=== PATIENT | male | born 1985 | race Caucasian/White ===

== ENCOUNTER 2017-06-07 22:33 | Observation (INO) ==
[2017-06-07] MEDS ORDERED: 0.9 % Sodium Chloride 1,000 ML IVC ONE (23:41)
[2017-06-07] MEDS ORDERED: methylPREDNISolone 125 MG/2 ML VIAL IVP ONE (23:43)
[2017-06-07] MEDS ORDERED: Ipratropium/Albuterol Neb 3 ML IH ONE (23:43)
--- NOTE | 2017-06-07 23:44 | Emergency Department Note ---
Overdose - Medical Records Medical records reviewed: Yes I reviewed the patient's medical records. - Lab Data Lab results reviewed: Yes I reviewed the patient's lab results. Result diagrams: 06/07/17 23:53 06/07/17 23:53 Lab Results 06/07/17 06/07/17 Range/Units 23:53 23:53 WBC 7.7 (4.3-11.1) K/mcL RBC 5.39 (4.19-5.50) M/mcL Hgb 16.1 (12.9-16.9) g/dL Hct 45.4 (37.5-50.1) % MCV 84.2 (83.0-100.0) fL MCH 29.9 (28.0-33.3) pg MCHC 35.5 (31.6-35.5) g/dL RDW 12.8 (11.5-14.5) % Plt Count 329 (140-400) K/mcL MPV 10.0 (9.4-12.4) fL Immature Gran % 0.5 (0-4) % Seg Neutrophils % 62.5 % Lymphocytes % 25.1 % Monocytes % 4.7 % Eosinophils % 6.4 % Basophils % 0.8 % Neutrophils # 4.8 (1.6-8.9) K/mcL Lymphocytes # 1.9 (0.6-4.6) K/mcL Monocytes # 0.4 (0.0-1.3) K/mcL Eosinophils # 0.5 (0.0-0.6) K/mcL Basophils # 0.1 (0.0-0.2) K/mcL Sodium 137 (136-145) mEq/L Potassium 3.6 (3.5-5.1) mEq/L Chloride 103 (98-107) mEq/L Carbon Dioxide 26 (23-29) mEq/L BUN 10 (6-20) mg/dL Creatinine 1.00 (0.70-1.30) mg/dL Est GFR ( Amer) > 60 (> 60) Est GFR (Non-Af Amer) > 60 (> 60) BUN/Creatinine Ratio 10 (6-26) Glucose 158 H (70-105) mg/dL Calculated Osmolality 286 (280-300) Calcium 9.4 (8.6-10.3) mg/dL Total Bilirubin 0.7 (0.3-1.0) mg/dL Direct Bilirubin 0.2 (0.0-0.2) mg/dL Indirect Bilirubin 0.5 (0.0-1.2) mg/dL AST 25 (13-39) Units/L ALT 23 (7-52) Units/L Alkaline Phosphatase 57 (34-104) Units/L Serum Total Protein 7.2 (6.4-8.9) g/dL Albumin 4.6 (3.5-5.7) g/dL Globulin 2.6 (2.4-3.5) g/dL Albumin/Globulin Ratio 1.8 (1.1-2.2) - Radiology Data Radiology results reviewed: Yes I reviewed the patient's radiology results. Chest X-Ray 06/07/17 22:52 IMPRESSION: No acute process. D/ / Alex Ward MD / Alex Ward MD Interpreting Provider: Alex Ward MD - EKG Data EKG attestation: Yes I reviewed and interpreted this EKG. EKG results narrative: EKG shows a normal sinus rhythm with ventricular rate of 83. No acute ST segment elevation or depression. Overdose HPI - General Chief Complaint: ED Overdose Stated Complaint: OD Time Seen by Provider: 06/07/17 23:15 Source: patient, EMS Limitations: no limitations Nursing Notes Reviewed: Yes Vital Signs Reviewed: Yes - History of Present Illness HPI Narrative: 32-year-old male presents to the emergency department after an accidental overdose of heroin. Patient states that he snorted it and he became unresponsive. He received intranasal Narcan by police but did not arouse. EMS gave an additional 2 mg of Narcan intranasal and he became alert. In the emergency department the patient is drowsy but responds and awakens with stimulation. Vital signs normal. He states he is not sure what he did but he thinks it was heroin and he snorted it. He denies injecting. He denies any suicidal or homicidal ideations. He did vomit at the scene and complains of some shortness of breath. Family concerned because he sounds rattly in his chest. Pt Subjective Complaint: accidental overdose Onset (ago): Just [employer]ACH[employer] Intent: accidental Treatments Prior to Arrival: narcan - Related Data Previous Rx's Medication Instructions Recorded Amoxicillin/Clavulanate [Augmentin] 875 mg PO BIDWM #20 tablet 03/22/15 Allergies Allergy/AdvReac Type Severity Reaction Status Date / Time No Known Allergies Allergy Verified 03/22/15 20:20 All systems ED: reviewed and negative except as stated. Respiratory: Reports: dyspnea, wheezes Gastrointestinal: Reports: nausea, vomiting Past Medical History - Past Medical History Medical history: Reports: no medical history, other Psychiatric history: Reports: no psych history - Social History Smoking Status: Current some day smoker Smokeless Tobacco Status: Yes Alcohol use: Reports: rarely Drug use: Reports: opiates Physical Exam - General Limitations: no limitations General appearance: alert, in no apparent distress - Head Head exam: atraumatic, normocephalic, normal inspection - Eye Eye exam: Present: normal appearance, PERRL, EOMI. Absent: scleral icterus - ENT ENT exam: normal exam, normal oropharynx, mucous membranes moist, TM's normal bilaterally - Neck Neck exam: Present: normal inspection, full ROM, trachea midline. Absent: tenderness, meningismus, lymphadenopathy - Chest Chest inspection: Present: normal inspection, symmetric chest wall rise. Absent : tenderness - Respiratory Respiratory exam: Present: wheezes (Patient does have diffuse scattered bilateral expiratory wheezes.). Absent: respiratory distress, stridor, accessory muscle use - Cardiovascular Cardiovascular exam: Present: regular rate, normal rhythm, normal heart sounds - Abdominal Exam Abdominal exam: Present: soft, Non-Tender, normal bowel sounds. Absent: distention, guarding, rebound, rigidity - Extremities Exam Extremities exam: Present: normal inspection, full ROM. Absent: tenderness, pedal edema - Back Exam Back exam: Present: normal inspection. Absent: CVA tenderness (R), CVA tenderness (L) - Neurological Exam Neurological exam: Present: alert. Absent: motor sensory deficit - Psychiatric Psychiatric exam: Present: normal affect, normal mood - Skin Skin exam: Present: warm, dry, intact, normal color. Absent: cyanosis, diaphoresis Course Course Narrative: Patient presented to the emergency department after an accidental overdose of heroin requiring intranasal Narcan. Patient monitored for several hours. Vital signs stable. Patient did vomit and had some wheezing and there was concern about possible aspiration. Workup for this obtained and is negative. Symptoms improved with a DuoNeb and Solu-Medrol. Patient however continued to have wheezing and Dropping his oxygen saturation down into the 80s despite having oxygen on by nasal cannula. - Consultations Consultation #1: The hospitalist, Dr. Pandey, was consulted and accepted admission of the patient. Vital Signs Temperature 98.9 F 06/07/17 22:38 Pulse Rate 89 06/07/17 22:38 Respiratory Rate 18 06/07/17 22:38 Blood Pressure 117/81 06/07/17 22:38 O2 Sat by Pulse Oximetry 93 06/07/17 22:38 Temperature 98.9 F 06/07/17 22:38 Pulse Rate 83 06/08/17 03:30 Respiratory Rate 16 06/08/17 03:20 Blood Pressure 114/71 06/08/17 03:30 O2 Sat by Pulse Oximetry 98 06/08/17 03:30 Oxygen Delivery Oxygen Delivery Nasal Cannula Disposition Clinical Impression: Wheezing, Hypoxia Drug overdose Qualifiers: Encounter type: initial encounter Injury intent: accidental or unintentional Qualified Code(s): T50.901A - Poisoning by unspecified drugs, medicaments and biological substances, accidental (unintentional), initial encounter Disposition: Admitted As Inpatient Condition: Fair Referrals: NONE,PCP [Primary Care Provider] - Forms: ED Satisfaction Letter
[2017-06-07 23:57] LABS: Basophils # 0.1 K/mcL (0.0-0.2); Basophils % 0.8 %; Eosinophils # 0.5 K/mcL (0.0-0.6); Eosinophils % 6.4 %; Hematocrit 45.4 % (37.5-50.1); Hemoglobin 16.1 g/dL (12.9-16.9); Immature Granulocytes % 0.5 % (0-4); Lymphocytes # 1.9 K/mcL (0.6-4.6); Lymphocytes % 25.1 %; Mean Corpuscular HGB Conc 35.5 g/dL (31.6-35.5); Mean Corpuscular Hemoglobin 29.9 pg (28.0-33.3); Mean Corpuscular Volume 84.2 fL (83.0-100.0); Monocytes # 0.4 K/mcL (0.0-1.3); Monocytes % 4.7 %; Neutrophils # 4.8 K/mcL (1.6-8.9); Platelet Count 329 K/mcL (140-400); Red Blood Count 5.39 M/mcL (4.19-5.50); Red Cell Distribution Width 12.8 % (11.5-14.5); Segmented Neutrophils % 62.5 %
[2017-06-08 00:08] LABS: Alanine Aminotransferase 23 Units/L (7-52); Albumin 4.6 g/dL (3.5-5.7); Albumin/Globulin Ratio 1.8 (1.1-2.2); Alkaline Phosphatase 57 Units/L (34-104); Aspartate Amino Transferase 25 Units/L (13-39); BUN/Creatinine Ratio 10 (6-26); Bilirubin,Direct 0.2 mg/dL (0.0-0.2); Bilirubin,Indirect 0.5 mg/dL (0.0-1.2); Bilirubin,Total 0.7 mg/dL (0.3-1.0); Blood Urea Nitrogen 10 mg/dL (6-20); Calcium 9.4 mg/dL (8.6-10.3); Carbon Dioxide 26 mEq/L (23-29); Chloride 103 mEq/L (98-107); Globulin 2.6 g/dL (2.4-3.5); Glucose 158 mg/dL (70-105); Osmolality,Calculated 286 (280-300); Potassium 3.6 mEq/L (3.5-5.1); Sodium 137 mEq/L (136-145); Total Protein 7.2 g/dL (6.4-8.9); eGFR For African Americans > 60 (> 60); eGFR For Non-African Americans > 60 (> 60)
[2017-06-08] MEDS ORDERED: Ipratropium/Albuterol Neb 3 ML IH ONE (03:06)
[2017-06-08] MEDS ORDERED: Acetaminophen 325 MG TABLET PO PRN (08:24)
[2017-06-08] MEDS ORDERED: Naloxone 0.4 MG/ML INJ IVP PRN (08:24)
[2017-06-08] MEDS ORDERED: Albuterol 2.5 MG/3 ML NEBULIZER IH PRN (08:27)
[2017-06-08] MEDS ORDERED: 0.9 % Sodium Chloride w KCl 20 MEQ/1,000 ML MLS IVC SCH (08:30)
[2017-06-08] MEDS: *HR* Heparin 5,000 UNIT/ML VIAL SQ SCH ×2 (08:54→17:48)
[2017-06-08] MEDS ORDERED: Piperacillin/Tazobactam 3.375 GM in 0.9 % Sodium Chloride Mini Bag 100 ML IVPB SCH ×2 (09:00→12:00)
--- NOTE | 2017-06-08 09:18 | Internal Med History&Physical ---
Date of Encounter: 06/08/17 Time of Encounter: 07:45 Assessment and Plan (1) Drug overdose Current visit: Yes Status: Acute 1. Will monitor on telemetry and close observation. 2. Patient awake and protecting airway now. 3. Do not plan to resume Suboxone until tomorrow due to overdose from last night. If patient remains somnolent through today and into tomorrow, recommend further withholding of Suboxone. 4. Will order urine toxicology screen. Qualifiers: Encounter type: initial encounter Injury intent: accidental or unintentional Qualified Code(s): T50.901A - Poisoning by unspecified drugs, medicaments and biological substances, accidental (unintentional), initial encounter (2) Aspiration into airway Current visit: Yes Status: Acute 1. CXR negative for infiltrates. 2. On exam, he has diffuse rhonchi and wheezing with oxygen requirement. 3. I will treat with Zosyn to cover aspiration alvarado. 4. Will also place on scheduled aerosols and steroids. 5. Wean oxygen as tolerated. Qualifiers: Encounter type: initial encounter Qualified Code(s): T17.908A - Unspecified foreign body in respiratory tract, part unspecified causing other injury, initial encounter (3) DVT prophylaxis Current visit: Yes Status: Acute 1. Heparin SQ. Internal Medicine - H&P: HPI Chief complaint: overdose Admitted From: Emergency Dept Plans for Post Hospital Care: Home History of present illness: Mr. Coyle is a 32 year old male who presented to the ER last night/early this morning with an accidental overdose of heroin. He was found by his niece and sister unresponsive in their apartment. EMS was contacted his sister, and she administered CPR. He was given nasal Narcan by police and then a repeat dose by EMS which led to successful reversal of heroin overdose. He was brought to the ER for evaluation where he was somnolent but arousable. However, he did vomit at the scene and there was concern that he aspirated. He did have oxygen requirement in the ER. Workup was negative, including chest x-ray. Nonetheless , given his hypoxemia and concern for aspiration pneumonia, he was admitted to hospitalist service. Upon my assessment of the patient this morning, he is somnolent but easily arousable. He is alert and oriented 3. His mother and aunt are present and confirm his history of prior drug use/abuse. This was first relapse in over a year. He is maintained on Suboxone at a clinic in [place] and has been weaning slowly off Suboxone. Unfortunately, he "fell off the wagon" and abused heroin yesterday. He had no intent to hurt himself or others. He admits he wanted to "get a quick fix." He denies any other drug abuse. He is coughing and wheezing audibly now. He has no history of asthma or COPD. Despite the negative chest x-ray, I will treat him for aspiration pneumonia and wheezing. Past Med Surg Social Fam HX - Past Medical History Attestation: Yes The following information was validated with the patient. Source: patient, old records reviewed, obtained from family Medical history: no medical history, other Psychiatric history: no psych history - Past Surgical History Surgical History: other (myringotomy tubes in ears as a young child) - Social History Smoking Status: Current some day smoker Smokeless Tobacco Status: Yes Alcohol use: rarely Drug use: opiates, IV Drug Use (heroin ) Occupational status: employed Current living situation: Home, With Family Activity Level: Independent ambulation Recent Out of Country Travel Within the Last 8 Weeks: No - Family History Mother Adopted: [place]: EUFEMIA HIGUERA Age: 52 Living Status: Still Living Hx Family Cardiac Disorders: Yes Father Adopted: [place]: JACK COYLE Age: 50 Living Status: Still Living Hx Family Cardiac Disorders: Yes (HYPERTENSION) Hx Family Respiratory Disorders: No Hx Family Cancer: No Hx Family GI Disorders: No Hx Family Genitourinary Disorders: No Hx Family Endocrine Disorder: No Hx Family Musculoskeletal Disorders: No Hx Family Neuromuscular Disorders: No Hx Family Neurologic Disorders: No Hx Family HEENT Disorders: No Hx Family Autoimmune Disorders: No Hx Family Reproductive Disorders: No Hx Family Psychosocial Disorders: No Hx Family Medical Disorders: No Internal Medicine - H&P: Meds Buprenorphine HCl/Naloxone HCl [Buprenorphin-Naloxon 8-2 mg Sl] 1 tab SL BID 05/27 [History] 3 Allergy/AdvReac Type Severity Reaction Status Date / Time No Known Allergies Allergy Verified 03/22/15 20:20 - Constitutional Constitutional: no chills, no fever(s), no night sweats - EENT Eyes: no blurry vision, no change in vision Ears: no ear pain, no tinnitus Nose, mouth and throat: no nasal congestion, no sinus pressure, no sore throat - Cardiovascular Cardiovascular ROS IM: syncope (overdose), no chest pain, no dyspnea, no dyspnea on exertion, no palpitations - Respiratory Respiratory: cough, wheezing, chest congestion, no hemoptysis, no dyspnea on exertion - Gastrointestinal Gastrointestinal: no abdominal pain, no diarrhea, no hematemesis, no hematochezia, no melena, no nausea, no vomiting - Genitourinary Genitourinary ROS male: no dysuria, no flank pain, no hematuria - Musculoskeletal Musculoskeletal ROS IM: no joint swelling, no myalgias - Integumentary Integumentary IM: no rash, no jaundice - Neurological Neurological ROS: no dizziness, no focal weakness, no frequent falls, no headache(s) - Psychiatric Psychiatric: no anxiety, no depression, no homicidal ideation, no suicidal ideation - Endocrine Endocrine IM: no polydipsia, no polyuria - Hematologic/Lymphatic Hematologic/Lymphatic: no easy bruising, no lymphadenopathy - Allergic/Immunologic Allergic/Immunologic: no wheezing, no GI upset with certain foods - Constitutional Vitals: Temp Pulse Resp BP Pulse Ox 99.3 F 84 18 122/72 97 06/08/17 06:13 06/08/17 06:13 06/08/17 06:13 06/08/17 06:13 06/08/17 06:13 General appearance: Present: cooperative, A&O X 3, pleasant, no acute distress, answers questions appropriately - Head Head exam: Present: atraumatic, normal inspection - Expanded Head Exam Head exam expanded: Absent: abrasion, contusion, general tenderness - Eye Eye exam: Present: EOMI, PERRL. Absent: scleral icterus Pupils: Present: normal accommodation - ENT ENT exam: Present: mucous membranes dry, normal exam - Neck Neck exam general surgery: Present: full ROM, supple. Absent: tenderness, nuchal rigidity, thyromegaly - Respiratory Respiratory exam: Present: prolonged expiratory phase, rhonchi, wheezes. Absent : chest wall tenderness, rales, respiratory distress - Cardiovascular Cardiovascular exam: Present: RRR, +S1, +S2. Absent: diastolic murmur, systolic murmur - GI/Abdominal GI/Abdominal exam: Present: normal bowel sounds, soft. Absent: hepatomegaly, mass, splenomegaly, tenderness - Extremities Exam Extremities exam: Present: full ROM, normal capillary refill, warm, radial pulses palpable and symmetrical. Absent: calf tenderness, joint swelling, pedal edema - Back Exam Back exam: Present: normal inspection. Absent: CVA tenderness (L), CVA tenderness (R) - Neurological Exam Neurological exam: Present: alert, CN II-XII intact, oriented X3, no focal deficits - Psychiatric Psychiatric exam: Present: normal affect, normal mood. Absent: homicidal ideation, suicidal ideation - Skin Skin exam: Present: dry, warm. Absent: rash Internal Med - H&P Results - Labs CBC & Chem 7: 06/07/17 23:53 06/07/17 23:53 - Diagnostic Studies Chest x-ray Status: image reviewed by me (negative)
[2017-06-08] MEDS: Ipratropium/Albuterol Neb 3 ML IH SCH ×3 (11:53→20:58)
[2017-06-08] MEDS: Piperacillin/Tazobactam 3.375 GM in 0.9 % Sodium Chloride Mini Bag 100 ML IVPB SCH (17:48)
[2017-06-08] MEDS: MethylPREDNISolone 40 MG/ML VIAL IVP SCH (17:48)
--- NOTE | 2017-06-08 20:02 | Electrocardiograph Report ---
[place] [id number] Test Date: 2017-06-08 Pat Name: Danish Elizabeth Department: 103 Room: 3B44 Gender: M Water Supply Technician: MUNA : 1985 Requested By: Timothy Miller Order Number: [id number] Reading MD: Guille Gaston DO Measurements Intervals [place] Rate: 83 P: 30 DC: 152 QRS: 44 QRSD: 110 T: 23 QT: 360 QTc: 400 Interpretive Statements SINUS RHYTHM POSSIBLE RIGHT VENTRICULAR CONDUCTION DELAY Electronically Signed On 06-08-2017 20:00:45 EST by Guille Gaston DO
[2017-06-08 23:05] LABS: Amphetamine Screen,Urine Negative ng/mL (Cutoff=1000); Barbiturate Screen,Urine Negative ng/mL (Cutoff=200); Benzodiazepines Screen,Urine Negative ng/mL (Cutoff=200); Cannabinoid Screen,Urine Negative ng/mL (Cutoff = 50); Cocaine Screen,Urine Negative ng/mL (Cutoff= 300); Opiate Screen,Urine Negative ng/mL (Cutoff=300); Phencyclidine Screen,Urine Negative ng/mL (Cutoff=25)
[2017-06-08] MEDS ORDERED: *HR* LORazepam 2 MG/ML VIAL IM ONE (23:22)
[2017-06-09] MEDS ORDERED: *HR* LORazepam 2 MG/ML VIAL IVP ONE (00:30)
[2017-06-09] MEDS ORDERED: *HR* LORazepam 2 MG/ML VIAL IVP PRN (00:30)
[2017-06-09] MEDS: Piperacillin/Tazobactam 3.375 GM in 0.9 % Sodium Chloride Mini Bag 100 ML IVPB SCH ×2 (02:49→10:53)
[2017-06-09] MEDS: Ipratropium/Albuterol Neb 3 ML IH SCH ×2 (03:28→09:58)
[2017-06-09 05:07] LABS: Basophils % 0.1 %; Hematocrit 40.1 % (37.5-50.1); Immature Granulocytes % 0.4 % (0-4); Lymphocytes # 1.5 K/mcL (0.6-4.6); Lymphocytes % 7.8 %; Mean Corpuscular HGB Conc 33.9 g/dL (31.6-35.5); Mean Corpuscular Hemoglobin 29.5 pg (28.0-33.3); Mean Platelet Volume 10.8 fL (9.4-12.4); Monocytes # 0.5 K/mcL (0.0-1.3); Monocytes % 2.5 %; Neutrophils # 17.4 K/mcL (1.6-8.9); Platelet Count 263 K/mcL (140-400); Red Blood Count 4.61 M/mcL (4.19-5.50); Red Cell Distribution Width 13.1 % (11.5-14.5); Segmented Neutrophils % 89.2 %
[2017-06-09 05:22] LABS: Alanine Aminotransferase 16 Units/L (7-52); Albumin 4.1 g/dL (3.5-5.7); Albumin/Globulin Ratio 1.7 (1.1-2.2); Alkaline Phosphatase 46 Units/L (34-104); Aspartate Amino Transferase 16 Units/L (13-39); BUN/Creatinine Ratio 14 (6-26); Bilirubin,Total 0.7 mg/dL (0.3-1.0); Blood Urea Nitrogen 11 mg/dL (6-20); Calcium 9.3 mg/dL (8.6-10.3); Carbon Dioxide 23 mEq/L (23-29); Chloride 108 mEq/L (98-107); Globulin 2.4 g/dL (2.4-3.5); Glucose 123 mg/dL (70-105); Osmolality,Calculated 285 (280-300); Potassium 4.2 mEq/L (3.5-5.1); Sodium 137 mEq/L (136-145); Total Protein 6.5 g/dL (6.4-8.9); eGFR For African Americans > 60 (> 60); eGFR For Non-African Americans > 60 (> 60)
[2017-06-09 05:31] LABS: Hemoglobin 13.6 g/dL (12.9-16.9)
[2017-06-09] MEDS: *HR* Heparin 5,000 UNIT/ML VIAL SQ SCH (05:38)
[2017-06-09] MEDS: MethylPREDNISolone 40 MG/ML VIAL IVP SCH (05:38)
[2017-06-09 07:55] VITALS: BP 124/73
[2017-06-09] MEDS ORDERED: Patient Taking Own Medication 1 EACH SL SCH (09:00)
--- NOTE | 2017-06-09 18:22 | Discharge Summary ---
Orders not resulted at time of discharge: Pending orders 06/08/17 10:21 Culture,Blood [BC] Stat 06/09/17 06:00 ECG 12 lead ECG [ECG] AM 0600 Date of Encounter: 06/09/17 Time of Encounter: 10:45 - Discharge Diagnosis (1) Aspiration into airway Priority: Primary Status: Acute Comments: Concern for Aspiration status post unresponsive after heroin overdose. Patient is being treated with Solu-Medrol, duo nebs, albuterol nebs, Zosyn. Patient signed out AMA prior to completing treatment. Chest X-Ray 06/07/17 22:52 IMPRESSION: No acute process. D/ / Alex Ward MD / Alex Ward MD Interpreting Provider: Alex Ward MD Qualifiers: Encounter type: initial encounter Qualified Code(s): T17.908A - Unspecified foreign body in respiratory tract, part unspecified causing other injury, initial encounter (2) DVT prophylaxis Priority: Secondary Status: Acute Comments: Heparin subcutaneous. Patient was also ambulatory in the room. (3) Drug overdose Priority: Secondary Status: Acute Comments: Patient reports he has not used heroin for approximately one year has been taking Suboxone. Patient was brought into the emergency department after heroin overdose last night. Patient became agitated overnight stating he could not stay here was withdrawing from Suboxone. Patient signed out AMA due to wanting to go home to smoke cigarettes and take his Suboxone. I discussed with him that he could bring his Suboxone to the pharmacy for them to send to the floor when needed to avoid withdrawal symptoms. Patient still signed out AGAINST MEDICAL ADVICE prior to completing treatment. Qualifiers: Encounter type: initial encounter Injury intent: accidental or unintentional Qualified Code(s): T50.901A - Poisoning by unspecified drugs, medicaments and biological substances, accidental (unintentional), initial encounter (4) Hypoxia Priority: Secondary Status: Acute Comments: On arrival patient was found to be hypoxic, prior to discharge, he was not requiring supplemental oxygen. (5) Wheezing Priority: Secondary Status: Acute Comments: Wheezing and rhonchi heard on exam. Status post aspiration after narcotic overdose. Patient did not finish treatment signed out AMA. Hospital course: Mr. Elizabeth is a 32 year old male - Time Spent with Patient Total time spent providing and/or coordinating discharge services: - Discharge Medications Home Medications: Buprenorphine HCl/Naloxone HCl [Buprenorphin-Naloxon 8-2 mg Sl] 1 tab SL BID 05/27 [History] Allergies/Adverse Reactions: 3 Allergy/AdvReac Type Severity Reaction Status Date / Time No Known Allergies Allergy Verified 03/22/15 20:20 Date of admission: 06/08/17 05:32 Primary care physician: PCP NONE Discharging clinician: Martina Bonilla Anticipated date of discharge: 06/09/17 - Constitutional Vitals: Temp Pulse Resp BP Pulse Ox 97.6 F 86 16 124/73 94 06/09/17 07:52 06/09/17 07:52 06/09/17 07:52 06/09/17 07:52 06/09/17 07:52 General appearance: Present: cooperative, A&O X 3, pleasant, no acute distress, answers questions appropriately - Patient Status Disposition: Left Against Medical Advice Condition: Fair - Discharge Instructions Follow Up With: NONE,PCP [Primary Care Provider] -
== END 2017-06-09 14:15 | disposition left against medical advice (07) ==
LOC: 3BNU 22:33 → EMEROO 22:33 → 3BNU 06-08 05:50
PROVIDERS: ADMIT Internal Medicine; ATTEND Registered Nurse